=== PATIENT | female | born 2000 | race African-American/Black ===

== ENCOUNTER → 2022-12-25 | Emergency (ER) | payer BC ==
[~2022-12-25] VITALS: Ht 170.2 cm; Wt 72.6 kg
[~2022-12-25] MED LIST: MORPHINE 4 MG INJ. 4 MG/ML VIAL IVP ONE; NACL 0.9% 1,000 ML IV ONE; ONDA-8 TL; ONDANSETRON HCL 4 MG/2 ML VIAL IVP ONE
[2022-12-26] VITALS: BP_SYST 106
--- NOTE | 2022-12-26 | NUR ---
Pt placed to ER waiting room in stable condition with mother.
--- NOTE | 2022-12-26 00:15 | NUR ---
Dr. Cooper assessing pt in triage room.
--- NOTE | 2022-12-26 01:00 | NUR ---
Pt placed to ER bed 07, to gown. Pt c/o generalized lower abdominal pain with diarrhea since 2129 this PM. Mother present to bedside.
--- NOTE | 2022-12-26 01:00 | NUR ---
Wilian garcía in ED - 12/26/22 at 0740 by MECHE Pt placed to ER tiffany , to jazzy, report given to LORETTA Hernández.
[2022-12-26 01:09] LABS: BILIRUBIN,URINE NEGATIVE (NEGATIVE); BLOOD, URINE NEGATIVE (NEGATIVE); COLOR,URINE YELLOW (YELLOW); GLUCOSE,URINE NEGATIVE (NEGATIVE); KETONES,URINE TRACE (NEGATIVE); LEUKOCYTE ESTERASE ,URINE NEGATIVE (NEGATIVE); NITRITE, URINE NEGATIVE (NEGATIVE); PH,URINE 5.5 (5.0-8.0); PROTEIN URINE TRACE (NEGATIVE)
[2022-12-26 01:17] LABS: BASOPHILS # (AUTO) 0.1 K/uL (0.0-0.2); BASOPHILS % (AUTO) 0.8 % (0.0-2.0); EOSINOPHILS # (AUTO) 0.3 K/uL (0.0-0.4); EOSINOPHILS % (AUTO) 2.7 % (0.0-4.0); HEMATOCRIT 40.6 % (36-48); HEMOGLOBIN 13.9 g/dL (12.0-16.0); LYMPHOCYTES # (AUTO) 0.6 K/uL (1.0-5.5); LYMPHOCYTES % (AUTO) 5.6 % (20.5-51.5); MEAN CORPUSCULAR HEMOGLOBIN 29 pg (27-31); MEAN CORPUSCULAR HGB CONC 34 % (32-36); MEAN CORPUSCULAR VOLUME 86 fL (79.0-98.0); MONOCYTES # (AUTO) 0.4 K/uL (0.0-1.0); MONOCYTES % (AUTO) 3.8 % (1.7-9.3); NEUTROPHILS # (AUTO) 9.1 K/uL (1.8-7.7); NEUTROPHILS % (AUTO) 87.1 % (40.0-70.0); PLATELET COUNT (AUTO) 218 K/uL (130-430); RED BLOOD CELL COUNT(AUTO) 4.73 MIL/uL (4.2-6.2); RED CELL DISTRIBUTION WIDTH 12.8 % (9.0-15.0); WHITE BLOOD COUNT (AUTO) 10.4 K/uL (4.5-11.0)
[2022-12-26 01:24] LABS: CLARITY/URINE HAZY (CLEAR)
[2022-12-26 01:31] LABS: BACTERIA,URINE FEW /HPF (None Seen); RBC,URINE 0-3 /HPF (0-3)
[2022-12-26 01:34] LABS: MUCUS,URINE 1+ /LPF (None Seen)
[2022-12-26 01:53] LABS: CALCIUM 8.8 mg/dL (8.4-11.0); CREATININE 0.69 mg/dL (0.55-1.30)
[2022-12-26 02:04] LABS: TOTAL BILIRUBIN 0.8 mg/dL (0.0-1.0)
[2022-12-26 02:58] VITALS: BP_SYST 110
--- NOTE | 2022-12-26 02:58 | NUR ---
Patient given written and verbal discharge instructions and verbalizes understanding. ER MD discussed with patient the results and treatment provided. Patient in stable condition. ID arm band removed. IV catheter removed intact and dressing applied, no active bleeding. Rx of Zofran given. Patient educated on pain management and to follow up with PMD. Pain Scale 0/10. Opportunity for questions provided and answered. Medication side effect fact sheet provided.
== END | disposition home or self-care (01) ==
LOC: SED 23:27
DX: R10.84 Generalized abdominal pain (principal); K30 Functional dyspepsia; R11.2 Nausea with vomiting, unspecified; Z79.899 Other long term (current) drug therapy
CPT/HCPCS: 36415; 76700-TC; 80053; 81000; 83690; 85025; 96374; 96375; 99285; J2270; J2405

== ENCOUNTER 2024-02-09 20:01 | Emergency (ER) | payer OTHER, BC ==
[~2024-02-09] VITALS: Ht 170.2 cm; Wt 71.7 kg
[~2024-02-09 20:01] MED LIST changes: -MORPHINE 4 MG INJ. 4 MG/ML VIAL IVP ONE; -NACL 0.9% 1,000 ML IV ONE; -ONDANSETRON HCL 4 MG/2 ML VIAL IVP ONE
[2024-02-09 20:26] VITALS: BP_SYST 124; PULSE 96; RESP 18; TEMP 96.5; O2SAT 97
[2024-02-09] MEDS: KETOROLAC TROMETHAMINE 60 MG/2 ML VIAL IM ONE (21:01)
[2024-02-09 21:49] VITALS: BP_SYST 115; PULSE 63; RESP 24; TEMP 97.8; O2SAT 99
[2024-02-09] MEDS ORDERED: DICL75TA5 PO (22:19)
[2024-02-09] MEDS ORDERED: DICL20GE TP (22:19)
== END 2024-02-09 21:35 | disposition home or self-care (01) ==
LOC: SED 20:01
DX: S16.1XXA Strain of muscle, fascia and tendon at neck level, initial encounter (principal); S46.812A Strain of other muscles, fascia and tendons at shoulder and upper arm level, left arm, initial encounter; Z79.899 Other long term (current) drug therapy; V89.2XXA Person injured in unspecified motor-vehicle accident, traffic, initial encounter; Y93.89 Activity, other specified; Y92.89 Other specified places as the place of occurrence of the external cause; Y99.8 Other external cause status
CPT/HCPCS: 99284; 72040; 73030; 81025; 96372; J1885